=== PATIENT | female | born 1940 | race Caucasian/White ===

== ENCOUNTER 2016-10-13 09:24 | Day surgery (SDC) | payer MEDICARE, BC ==
[~2016-10-13] VITALS: Ht 152.4 cm; Wt 71.5 kg
[~2016-10-13 09:24] MED LIST: ASCO500C PO; CITRTAB7 OR; ECOT81TA2 PO; MECL-62 OR; OMEG500C OR; SIMV10TA OR; TAB-TAB PO; ZIAC5TAB PO
[2016-10-13] MEDS ORDERED: SIMV10TA PO (09:59)
[2016-10-13] MEDS ORDERED: MULT-65 PO (09:59)
[2016-10-13] MEDS ORDERED: CARV3.125 PO (09:59)
[2016-10-13] MEDS ORDERED: SENN8.6T8 (09:59)
[2016-10-13] MEDS ORDERED: FURO1TAB60 PO (09:59)
[2016-10-13] MEDS ORDERED: ASPI81CH CHEW (09:59)
[2016-10-13] MEDS ORDERED: OMEGCAP PO (09:59)
[2016-10-13] MEDS ORDERED: ACET500T13 PO (09:59)
[2016-10-13] MEDS ORDERED: VITA500T83 PO (09:59)
[2016-10-13] MEDS ORDERED: FERR325C (09:59)
[2016-10-13] MEDS ORDERED: CITRTAB11 PO (09:59)
[2016-10-13 10:00] VITALS: BP 174/73; PULSE 82; RESP 16; TEMP 97.8; O2SAT 95
[2016-10-13 10:04] LABS: AUTOMATED NEUTROPHIL # 3.9 TH/MM3 (1.8-7.7); BASOPHIL # 0.1 TH/MM3 (0-0.2); BASOPHIL % 0.9 % (0.0-2.0); EOSINOPHIL # 0.1 TH/MM3 (0-0.4); EOSINOPHIL % 2.1 % (0.0-4.0); HEMATOCRIT 34.1 % (35.0-46.0); HEMO FLAGS DIFF FINAL; LYMPH % 29.7 % (9.0-44.0); MEAN CELL VOLUME 96.8 FL (80.0-100.0); MEAN CORPUSCULAR HEMOGLOBIN 32.8 PG (27.0-34.0); MEAN CORPUSCULAR HGB CONC 33.9 % (32.0-36.0); MONO % 9.4 % (0.0-8.0); NEUT % 57.9 % (16.0-70.0); PLATELET COUNT 192 TH/MM3 (150-450); RED BLOOD COUNT 3.52 MIL/MM3 (4.00-5.30); RED CELL DISTRIBUTION WIDTH 11.6 % (11.6-17.2); WHITE BLOOD COUNT 6.7 TH/MM3 (4.0-11.0)
[2016-10-13 10:20] LABS: BICARBONATE 30.1 MEQ/L (21.0-32.0); POTASSIUM 4.7 MEQ/L (3.5-5.1)
[2016-10-13 10:25] LABS: INTERNATIONAL NORMALIZED RATIO 0.9 RATIO; PROTHROMBIN TIME - PATIENT 10.3 SEC (9.8-11.6)
[2016-10-13] MEDS ORDERED: VANCOMYCIN HCL 1000 MG VIAL ONE (12:01)
[2016-10-13] MEDS ORDERED: ceFAZolin INJ 1,000 MG VIAL ONE (12:01)
[2016-10-13] MEDS ORDERED: CHLORHEXIDINE GLUCONATE 2 % 1 PACK (2 CLOTHS) TOPICAL PRN (13:00)
[2016-10-13] MEDS ORDERED: MUPIROCIN 2% OINT 1 APPLIC/GM SYR NASAL SCH (13:00)
[2016-10-13] MEDS ORDERED: ceFAZolin 2 GM PREMIX 50 ML IV SCH (13:00)
[2016-10-13] MEDS ORDERED: CHLORHEXIDINE GLUCONATE 2 % 1 PACK (2 CLOTHS) TOPICAL SCH (13:00)
[2016-10-13] MEDS ORDERED: LACTATED RINGER'S 1000 ML IV PRN (13:00)
[2016-10-13] MEDS ORDERED: POVIDONE IODINE 5% (ANTISEPSIS KIT) 4 APPLICATIONS EACH NARE SCH (13:00)
[2016-10-13] MEDS ORDERED: SODIUM CHLORID 0.9% 500 ML IV PRN (13:00)
[2016-10-13] MEDS ORDERED: INSULIN HUMAN REGULAR 1,000 UNITS/10 ML VIAL SQ PRN (13:00)
[2016-10-13] MEDS ORDERED: POVIDONE IODINE 5% (ANTISEPSIS KIT) 4 APPLICATIONS EACH NARE PRN (13:00)
[2016-10-13] MEDS ORDERED: METOPROLOL TARTRATE 25 MG TAB PO PRN (13:00)
[2016-10-13] MEDS ORDERED: MIDAZOLAM HCL 2 MG/2 ML VIAL ONE (13:04)
[2016-10-13] MEDS ORDERED: LIDOCAINE HCL 2% 50 ML VIAL ONE (13:12)
[2016-10-13] MEDS ORDERED: VANCOMYCIN 500 MG VIAL ONE (13:12)
--- NOTE | 2016-10-13 14:43 | EKG ---
Date Performed: 10/13/2016 Time Performed: 10:11:32 PTAGE: 76 years EKG: Ventricular pacing. Pacemaker rhythm - no further analysis Abnormal ECG Since prior tracing , rhythm is now ventricular pacing. PREVIOUS TRACING : 10/02/2011 05.11 DOCTOR: Oneal Sandhu Interpretating Date/Time 10/13/2016 14:42:26
[2016-10-13] MEDS ORDERED: ACETAMINOPHEN/CODEINE 300 MG/30 MG TAB PO PRN (15:00)
[2016-10-13] MEDS ORDERED: ACETAMINOPHEN 325 MG TAB PO PRN (15:00)
[2016-10-13] MEDS ORDERED: VANCOMYCIN INJ 1,000 MG in SODIUM CHLOR 0.9% 250 ML INJ 250 ML IV ONE (15:00)
--- NOTE | 2016-10-13 15:02 | CATHPROC ---
[facility] HIS Report Study Information Study Number Admission Scheduled Start Study Start [id number] Oct 13 2016 9:24AM 10/13/2016 Oct 13 2016 12:28PM [place] Service Cardiac Pacer/ICD Admit Source Facility Department Other [facility] - [facility] [facility] Physician and Clinical Staff Initial Jacquelin Reese Tire Finisher Jesus Perales,RT(R) Other Courtney Parry,IRIS Recorder Jolanta Raza BSRN Scrub Clari Vaca RCIS Procedures Performed Procedure Lead Insertion Equipment Time Manager Loan Description Size Mfg Part Number Used/Scraped 13:01 [employer], [place] X-RAY 12X17 12X17 D-100 *[id number] Used 13:13 [employer], [place] X-RAY 12X17 12X17 D-100 *[id number] Used RAD PAD, X-DRAPE 12"X17" 13:16 [employer] MEDICAL 12X17 D-110 *[id number] Used W/CUTOUT PER. MPIS-502-10.0- INTRODUCER SET, 13:01 [employer] FR 5 SC-NT-U-SST Used MICROPUNCTURE, STIFFENED *[id number] 13:01 [employer] DRAPE, IOBAN 2 6661EZ 26cm x 20cm Used *[id number] 6661EZ 13:13 [employer] DRAPE, IOBAN 2 6661EZ 26cm x 20cm Used *[id number] TP-1103 13:01 [employer] SUTURE, STRIP PLUS 1/2" * Used *[id number] 13:01 [employer] PACER ADHESIVE, MASTISOL 2/3CC 2/3CC 0523-48 Used 13:01 [employer] PACER TAMEZ, LIMB * 2530 *[id number] Used [id number] 13:01 [employer] PACER PACK, PACER CUSTOM * Used *[id number] 13:01 [employer] PACER PEN, SKIN DUAL W/ RULER * Used *[id number] 14:05 [employer] PACER SAFE SHEATH, FR8, 13CM FR 8 CLS-1008 Used PROBE COVER, STERILE [id number] 13:01 Big Frame * Used ULTRASOUND W/ GEL *[id number] 14:28 Needle Sponge Count 1 111 Used 14:49 Needle Sponge Count 1 111 Used 13:40 Needle Sponge Count 2 22 Used 14:27 Needle Sponge Count 20 200 Used 14:27 Needle Sponge Count 3 3 Used 14:49 Needle Sponge Count 3 3 Used 14:31 Needle Sponge Count 30 1 Used 13:40 Needle Sponge Count 30 1 Used 13:40 Needle Sponge Count 4 4 Used [id number] *[id number] SUTURE, 0 ETHIBOND [CT1] (CX21D), 8pk SUTURE, 2-0 VICRYL [CT1] ([id number]) SUTURE, 2-0 VICRYL [CT1] ([id number]) SUTURE, 4-0 VICRYL [PS2] ([id number]) [id number] 13:01 [place] [employer],WARM AIR CCL * Used *[id number] [facility] PAD, ELECTROSURGICAL 13:01 * [id number] *[id number] Used SURGICAL GROUNDING ORANGE LEAD, CAPSURE FIX NOVUS, 4076-45CM 14:01 V[employer]RON MED[employer]IC 45CM Used 45CM *[id number] ADDR01 14:12 [employer] PACEMAKER, ADAPTA DDDR Used *[id number] 13:22 [employer] PLASMABLADE, PEAD 3.0S * [id number] Used 3020-8194 13:01 [employer] MEDICAL TONO. ELECTRODE, PRO-PADZ BIPHASIC * Used *88901 Equipment Model, Serial, Lot Number and Expiration Data Description Model Number Serial Number Lot Number Expiration Date LEAD, CAPSURE FIX NOVUS, 45CM 4076-45 [id number] 06-23-2018 PACEMAKER, ADAPTA ADDR01 [id number] 01-08-2018 History: Allergies Allergy Reaction No Known Allergies History: Risk Factors Hypertension Dyslipidemia Previous Heart Failure Yes Yes Yes History: Other Disease Selection Items CHF Labs Hgb (g/dl) Hct (%) RBC (MIL/MM3) WBC (l/cumm) Platelets (thousands) 12.00-18.00 37.00-55.00 4.80-6.20 4.80-10.80 140.00-450.00 11.0 34 3.5 6.7 192 Glucose (mg/dl) BUN (mg/dl) Creatinine (mg/dl) BUN:Creatinine (1:x) 60.00-110.00 8.00-20.00 0.10-9.00 10.00-20.00 100 48 1.8 26.7 Na (meq/l) K (meq/l) Cl (meq/l) CO2 (mmol/L) Ca (mg/dl) 138.00-146.00 3.80-5.10 101.00-111.00 23.00-30.00 9.00-10.50 138 4.7 102 30.1 9.7 INR (PTT:PT) 0.50-2.00 0.9 Medication Medication Total Dose (Bolus/Oral) Medication Total Dosage/Unit 2% XYLOCAINE 50 mL Medications (Bolus/Oral) Medication Time Given Dosage/Unit Administered By Reason 2% XYLOCAINE 10/13/2016 1:54:34 PM 50 mL Courtney Parry 50 mL 2% XYLOCAINE given in lab by Courtney Parry RN via Subcutaneous. Ordered by Jacquelin Claudio. left upper chest Medication (Drip) Medication Time Given Dosage/Unit Concentration/Unit Diluent (ml) Solution ANCEF 10/13/2016 1:07:00 PM 1 g 1 g ANCEF given in lab by Courtney Parry RN in Right Antecubital via Peripheral IV. Ordered by Jacquelin Luna. Reason: As per physicians verbal order. VANCOMYCIN DRIP 10/13/2016 1:13:30 PM 1 g 1 g VANCOMYCIN DRIP given in lab by Courtney Parry RN in Right Antecubital via Peripheral IV. Orde red by Jacquelin Claudio. Reason: As per physicians verbal order. Initial Case Assessment Cardiovascular HR NIBP Chest Pain 64 193/74 0 Edema Present Skin color Skin None Normal Warm Dry Neurological State Oriented to time-place- Alert Moves all extremities person Respiration - General Respiration Rate SpO2 (%) (B/min) 18 99 Final Case Assessment Cardiovascular HR NIBP Chest Pain 65 159/72 0 Edema Present Skin color Skin None Normal Warm Dry Neurological State Oriented to time-place- Alert Moves all extremities person Respiration - General Respiration Rate SpO2 (%) (B/min) 18 100 Chronological Log Time Study Chronological Log 12:58:12 Patient arrived via Bed. 12:58:14 Patient Name, D.O.B, / Armband Verified By R.N. 12:58:15 Consent signed by the physician and the patient and verified by the [facility] [facility] staff. 12:58:17 Pre-op and post- op instructions given; patient acknowledges understanding of instructions. 12:58:41 Verbal Stimulation=2 Physical Stimulation=2 Airway=2 Respiration=2 TOTAL=8. (0=absent, 1=li mited, 2=present) 12:58:52 Patient has been NPO for More than 6Hrs. 12:58:54 Skin Breakdown- NON PER PT 12:59:01 Patient Warmer Placed on the Table. 12:59:02 Disposable Defibrillator Pads Placed On Patient. 12:59:04 Froy Prominences Protected 12:59:05 A # 22 IV was noted in the Wrist (left). Grade = 0 0.9NS KVO 12:59:06 A # 20 IV was noted in the Antecubital (right). Grade = 0 0.9NS KVO 12:59:08 History and physical on the chart. 1 g ANCEF given in lab by Courtney Parry, IRIS in Right Antecubital via Peripheral IV. Ordered by Jacquelin Claudio. 13:07:00 Reason: As per physicians verbal order. Assessment: Initial Case, HR=64 BPM, LZZU=640/74 mmhg, Chest Pain=0, Edema=None, Color=Normal, Skin = Warm, Dry 13:10:55 Neurological: State=Alert, Ox3, CLEMENT Respiration: Resp=18 B/min, SpO2=99 % Anesthesia at bedside. Assumes care of patient. Marco A TOP LIFT SCOURER 13:11:29 1 g VANCOMYCIN DRIP given in lab by Courtney Parry, IRIS in Right Antecubital via Peripheral IV . Ordered by 13:13:30 Jacquelin Claudio. Reason: As per physicians verbal order. 13:14:27 Table restraints applied according to hospital policy 13:14:36 Left Upper Chest Prepped Times Two. 13:18:00 Bovie ground pad applied to: right thigh 13:19:05 2% CHLORHEXIDINE GLUCONATE WASH AND NASAL SWIPE DONE PRIOR TO PROCEDURE. First Sponge And Instrument Count Done by Courtney Parry, IRIS. 13:35:44 Hypo's: 3, Sponges: 30, Bovie/scratch: 1 Sutures: 11, Blades: 2, Instruments: 26, Syveck Patches: 0 13:54:12 Immediate Presedation assesment performed by physician. Time Out. Correct patient, procedure, procedure equipment, site and side verified with physicia n present. Time 13:54:18 concurred by MD, individual staff and TOP LIFT SCOURER. Time Out #2 - Consents verified, patient in correct position, all results are labled and displa yed, safety precautions 13:54:22 taken, antibiotics administered. Time out concurred by MD, individual staff and TOP LIFT SCOURER in procedu re 13:54:28 Case Start 50 mL 2% XYLOCAINE given in lab by Courtney Parry, RN via Subcutaneous. Ordered by Jossy Claudio. left upper 13:54:34 chest 13:56:25 Surgical Incision Made. 13:58:10 ONE antibiotic sponge put into the surgical pocket. 13:58:11 Vascular access was obtained in the Subclav. Vein (Lft. A INTRODUCER SET, MICROPUNCTURE, STIFFENED FR 5 was advanced into the Subclav. Vein (Lft using the 13:59:25 Percutaneous technique. A SAFE SHEATH, FR8, 13CM FR 8 was exchanged in the Subclav. Vein (Lft. This was necessary in or lucio to achieve 14:04:36 vascular hemostasis. 14:05:13 A LEAD, CAPSURE FIX NOVUS, 45CM 45CM was inserted and positioned in the RA. 14:05:23 Lead placement verified under fluoroscopy 14:05:30 The Atrial lead impedance and threshold is being tested. 14:10:33 one antibiotic sponge removed from pocket 14:12:00 Pre existing RA lead capped. 14:13:08 Pocket flushed with antibiotic solution 14:15:00 The Atrial lead was sutured to the fascia. 14:19:36 A PACEMAKER, ADAPTA DDDR was connected and placed in the pocket. Second Sponge And Instrument Count Done by Courtney Parry, IRIS. 14:26:36 Hypo's: 3, Sponges: 30, Bovie/scratch: 1 Sutures: ~SUTURE~, Blades: 2, Instruments: ~INSTRU~, Syveck Patches: ~SYVECK PATCH~ 14:28:00 The pocket was closed. 14:30:56 Implant Procedure was performed. 14:31:13 A PPM Implant . (Dual) gen change with new RA lead insertion 14:34:16 Bedside Report will be given. 14:48:46 Steri-strips and a sterile dressing applied to site. The Final Sponge And Instrument Count Done by Jacquelin Claudio. 14:48:49 Hypo's: 3, Sponges: 30, Bovie/scratch: 1 Sutures: 11, Blades: 2, Instruments: 26, Syveck Patches: 0 14:50:00 Case End 14:50:51 A sling was placed on the affected arm. Assessment: Final Case, HR=65 BPM, XMXD=382/72 mmhg, Chest Pain=0, Edema=None, Color=Normal, S kin = Warm, Dry 14:52:05 Neurological: State=Alert, Ox3, CLEMENT Respiration: Resp=18 B/min, NpM3=506 % 14:53:01 No case complications noted. 14:53:06 Cine recording checked. 14:53:14 Implantable Device card placed in patient's chart. 14:53:17 Defibrillator and ground pads removed. Skin intact. 14:55:23 Patient moved to stretcher and transported to [facility] in stable condition. End Study - Contrast Media Used In Study Contrast Total Opened (mL) Total Used (mL) Total Wasted (mL) Unspecified 0 0 0 End Study - Maximum Contrast Load Max Contrast Load (mL) 187.8 End Study - Radiation Exposure Fluoro Time (minutes) 2.1 End Study - Patient Disposition Complications Transferred To Interventional Outcome No Telemetry Bed successful
--- NOTE | 2016-10-13 17:32 | RADRPT ---
EXAM DATE/TIME: 10/13/2016 16:39 [place] COMPARISON: CHEST SINGLE AP, October 01, 2011, 18:46. INDICATIONS : Post pacemaker exchange. MEDICAL HISTORY : Cardiovascular disease. SURGICAL HISTORY : Pacemaker. ENCOUNTER: Initial ACUITY: 1 day PAIN SCORE: 10 LOCATION: Bilateral chest FINDINGS: There is a multilead pacemaker device in place from the left subclavian approach. The heart size is upper limits of normal. There is some mild prominence of the interstitium at the mid and lower lungs bilaterally. There is a focal area of increased density seen at the upper left chest. It is diffic ult to determine if this is related to the first costochondral junction or an underlying mass. CT of the chest could be performed to evaluate this region. CONCLUSION: 1. Mild prominence of the interstitium at the mid and lower lungs likely representing some underlying interstitial disease versus mild edema. 2. Possible mass-like area seen at the left upper chest related to either the first costochondral soheila ction or an underlying mass. This lawrence could be further evaluated with a CT examination. Buck Denton MD on October 13, 2016 at 17:21 Board Certified Radiologist. This report was verified electronically.
[2016-10-13 20:00] VITALS: BP 134/59; PULSE 64; RESP 16; TEMP 98.6; O2SAT 98
[2016-10-13] MEDS: CARVEDILOL 3.125 MG TAB PO SCH (20:30)
[2016-10-13] MEDS: ceFAZolin 2 GM PREMIX 50 ML IV SCH (20:31)
[2016-10-13] MEDS ORDERED: CALCIUM/VITAMIN D 250 MG/125 U TAB PO SCH (21:00)
[2016-10-13] MEDS: CALCIUM/VITAMIN D 250 MG/125 U TAB PO SCH (22:55)
[2016-10-14] VITALS: BP 133/55; PULSE 67; RESP 18; TEMP 98; O2SAT 98
[2016-10-14 04:00] VITALS: BP 147/68; PULSE 64; RESP 18; TEMP 98.5; O2SAT 98
[2016-10-14] MEDS: ceFAZolin 2 GM PREMIX 50 ML IV SCH ×2 (04:37→12:45)
[2016-10-14 09:00] VITALS: BP 159/78; PULSE 65; RESP 20; TEMP 97.5; O2SAT 97
[2016-10-14] MEDS ORDERED: FUROSEMIDE 40 MG TAB PO SCH (09:00)
[2016-10-14] MEDS ORDERED: PRAVASTATIN SOD 20 MG TAB PO SCH (09:00)
[2016-10-14] MEDS: CALCIUM/VITAMIN D 250 MG/125 U TAB PO SCH (09:00)
[2016-10-14] MEDS ORDERED: ASPIRIN 81 MG CHEW TAB CHEW SCH (09:00)
[2016-10-14] MEDS ORDERED: MULTIVITAMIN TAB PO SCH (09:00)
[2016-10-14] MEDS ORDERED: NON-FORMULARY DRUG (Fish Oil-Cholecalciferol (Omega-3 Fish Oil/Vitamin) 1 CAP) PO SCH (09:00)
[2016-10-14] MEDS: CARVEDILOL 3.125 MG TAB PO SCH (09:59)
[2016-10-14 11:00] VITALS: BP 159/78; PULSE 60; PULSE 63; RESP 20; TEMP 98.2; O2SAT 96
--- NOTE | 2016-10-14 11:52 | MP ---
cc: JACQUELIN CLAUDIO ARTHUR W. M.D. DATE OF SURGERY 10/13/2016 INDICATION End-of-life of Medtronic dual-chamber pacemaker, atrial lead malfunction. Sick sinus syndrome with severe symptomatic bradycardia, paroxysmal atrial fibrillation. PROCEDURE PERFORMED 1. Explantation of end-of-life Medtronic dual-chamber pacemaker. 2. Placement of a new atrial lead. 3. Placement of a new Medtronic dual-chamber pacemaker, ACCESS SITE Left subclavian vein. EQUIPMENT USED Generator: Medtronic Adapta model ADDR01 dual-chamber pacemaker, serial number [id number]. Right Atrial Lead: Medtronic model 4076-45 cm screw-in atrial lead, serial number [id number]. Right Ventricular Lead: Medtronic model 4076-52 cm screw-in ventricular lead, serial number [id number]. LEAD TESTING Right atrial lead - P-wave 3.0 mV, pacing threshold 1.5 volts at 0.4 milliseconds. Lead impedance 1253 ohms. PARAMETERS Mode: AAIR/DDDR, lower rate 60, upper rate 130. DIAGNOSIS Successful replacement of end-of-life Medtronic dual-chamber pacemaker and placement of a new atrial lead using a new Medtronic dual-chamber device and a new Medtronic atrial lead. DISPOSITION Ms. Urbano will be monitored on telemetry after her procedure. We will obtain serial enzymes and EKGs. She will be discharged home tomorrow if stable. I will see her back for a wound check and chronic device reprogramming in our office within 2 weeks. She will then see Dr. Adam, her primary elevator inspector, for long-term device followup. Jacquelin Claudio MD OQ/SSB /2:37 PM /11:44 AM MARVA
[2016-10-14 12:00] VITALS: PULSE 61
[2016-10-14 13:00] VITALS: PULSE 61
--- NOTE | 2016-10-14 14:47 | PD.CARD.PN ---
Subjective Subjective Remarks No CP or SOB Objective Medications Current Medications Medications (Trade) Dose Ordered Sig/Jadyn Route Start Time Stop Time Status Last Admin Lactated Ringer's 1,000 ml @ 30 mls/hr Q24H PRN IV 10/13/16 13:00 10/16/16 12:59 (NS 500 ml Inj) 500 ml @ 30 mls/hr [id number] PRN IV 10/13/16 13:00 10/16/16 12:59 (Aspirin Chew) 81 mg DAILY CHEW 10/14/16 09:00 10/14/16 09:59 (Coreg) 3.125 mg BID PO 10/13/16 21:00 10/14/16 09:59 (Lasix) 40 mg DAILY PO 10/14/16 09:00 10/14/16 09:59 (Theragran) 1 tab DAILY PO 10/14/16 09:00 (Pravachol) 20 mg DAILY PO 10/14/16 09:00 10/14/16 09:59 (Tylenol-Codeine #3) 2 tab Q4H PRN PO 10/13/16 15:00 10/14/16 04:00 (Tylenol) 650 mg Q4H PRN PO 10/13/16 15:00 10/13/16 23:34 (Oscal-D 250-125) 250 mg BID PO 10/13/16 22:55 10/13/16 22:55 Vital Signs / I&O Vital Signs Date Time Temp Pulse Resp B/P Pulse Ox O2 Delivery O2 Flow Rate FiO2 10/14/16 13:00 61 10/14/16 12:00 61 10/14/16 11:00 60 10/14/16 11:00 98.2 63 20 159/78 96 10/14/16 09:00 97.5 65 20 159/78 97 10/14/16 04:00 98.5 64 18 147/68 98 10/14/16 00:00 98.0 67 18 133/55 98 10/13/16 20:00 98.6 64 16 134/59 98 I/O 10/13/16 10/13/16 10/13/16 10/14/16 10/14/16 10/14/16 07:00 15:00 23:00 07:00 15:00 23:00 Intake Total 870 ml Output Total 350 ml Balance 520 ml Intake Oral 420 ml IV Total 450 ml Output Urine Total 350 ml Physical Exam GENERAL: SKIN: Warm and dry. HEAD: Normocephalic. EYES: No scleral icterus. No injection or drainage. NECK: Supple, trachea midline. No JVD or lymphadenopathy. CARDIOVASCULAR: Regular rate and rhythm without murmurs, gallops, or rubs. RESPIRATORY: Breath sounds equal bilaterally. No accessory muscle use. GASTROINTESTINAL: Abdomen soft, non-tender, nondistended. MUSCULOSKELETAL: No cyanosis, or edema. Wound stable Laboratory Laboratory Tests Test 10/13/16 09:55 White Blood Count 6.7 TH/MM3 Red Blood Count 3.52 MIL/MM3 Hemoglobin 11.5 GM/DL Hematocrit 34.1 % Mean Corpuscular Volume 96.8 FL Mean Corpuscular Hemoglobin 32.8 PG Mean Corpuscular Hemoglobin 33.9 % Concent Red Cell Distribution Width 11.6 % Platelet Count 192 TH/MM3 Mean Platelet Volume 8.9 FL Neutrophils (%) (Auto) 57.9 % Lymphocytes (%) (Auto) 29.7 % Monocytes (%) (Auto) 9.4 % Eosinophils (%) (Auto) 2.1 % Basophils (%) (Auto) 0.9 % Neutrophils # (Auto) 3.9 TH/MM3 Lymphocytes # (Auto) 2.0 TH/MM3 Monocytes # (Auto) 0.6 TH/MM3 Eosinophils # (Auto) 0.1 TH/MM3 Basophils # (Auto) 0.1 TH/MM3 CBC Comment DIFF FINAL Differential Comment Prothrombin Time 10.3 SEC Prothromb Time International 0.9 RATIO Ratio Activated Partial 27.0 SEC Thromboplast Time Sodium Level 138 MEQ/L Potassium Level 4.7 MEQ/L Chloride Level 102 MEQ/L Carbon Dioxide Level 30.1 MEQ/L Anion Gap 6 MEQ/L Blood Urea Nitrogen 48 MG/DL Creatinine 1.80 MG/DL Estimat Glomerular Filtration 27 ML/MIN Rate Random Glucose 100 MG/DL Calcium Level 9.7 MG/DL Assessment and Plan Problem List: (1) Pacemaker end of life (2) Pacemaker (3) SSS (sick sinus syndrome) Assessment and Plan Wound stable, pacemaker interrogation with normal device fx. DC home. F/u with ga for a wound check and final programming, then f/u w Dr. Adam. Jacquelin Claudio MD Oct 14, 2016 14:47
== END 2016-10-14 15:06 | disposition home or self-care (01) ==
LOC: HDOC 09:24 → HDIC 09:25 → HCIS 18:34 → HDOC 10-14 15:06
PROVIDERS: ATTEND Internal Medicine Interventional Cardiology
DX: Z45.010 Encounter for checking and testing of cardiac pacemaker pulse generator [battery] (principal); I49.5 Sick sinus syndrome; I13.0 Hypertensive heart and chronic kidney disease with heart failure and stage 1 through stage 4 chronic kidney disease, or unspecified chronic kidney disease; I50.9 Heart failure, unspecified; N18.9 Chronic kidney disease, unspecified; I25.10 Atherosclerotic heart disease of native coronary artery without angina pectoris; I48.0 Paroxysmal atrial fibrillation; E78.5 Hyperlipidemia, unspecified; I27.2 Other secondary pulmonary hypertension; Z79.82 Long term (current) use of aspirin
CPT/HCPCS: 00400; 33206; 71010; 80048; 85025; 85610; 85730; 93005; C1785; C1898; J0690; J2250; J3010; J3370; J7050; 33217; 33228